=== PATIENT | male | born 1965 | race Caucasian/White ===

== ENCOUNTER 2017-12-29 10:06 | Emergency (ER) | payer OTHER ==
[2017-12-29 10:16] VITALS: TEMP 98
--- NOTE | 2017-12-29 11:24 | EDPHY ---
H & P Time Seen by Provider: 12/29/17 10:10 HPI/ROS: 52-year-old male presents complaining of right arm pain primarily in his right forearm after lifting a box at work. Patient states he felt a pop in his right elbow and forearm. Review of systems As per HPI General no fever no chills no weakness HEENT no eye pain no eye discharge. No eye redness, no sore throat Respiratory no cough, no shortness of breath Cardiac no chest pain, no peripheral edema GI no abdominal pain, no diarrhea, no constipation, no nausea, no vomiting no flank pain, no hematuria, no dysuria Musculoskeletal positive myalgias, no joint pain Heme no easy bruising, no easy bleeding Endo no polyuria, no polydipsia Skin no rashes, no pruritus Neuro no syncope, no dizziness, no headaches Psych is no suicidal ideation, no homicidal ideation Past Medical/Surgical History: GERD Hyperlipidemia Social History: Denies alcohol or drug use Smoking Status: Never smoked Physical Exam: 52-year-old male alert and oriented in no acute distress nontoxic appearance afebrile Atraumatic normocephalic No respiratory distress Lungs clear to auscultation Right upper extremity No gross deformity, good pulses, good range of motion at digits wrist elbow and shoulder Biceps intact Proximal right forearm at radial aspect with mild tenderness to palpation No ecchymosis, no swelling Constitutional: Initial Vital Signs Temperature (C) 36.6 C 12/29/17 10:12 Heart Rate 95 12/29/17 10:12 Respiratory Rate 20 12/29/17 10:12 Blood Pressure 136/111 H 12/29/17 10:12 O2 Sat (%) 98 12/29/17 10:12 O2 Delivery Mode Room Air Allergies/Adverse Reactions: No Known Allergies Allergy (Unverified 09/25/15 16:20) Home Medications: Medication Instructions Recorded Cholecalciferol Vit D3 [Vitamin D3 2,000 units PO DAILY 10/03/15 2000 units] FEXOFENADINE HCL 180 mg PO DAILY 10/03/15 Fluticasone Nasal [Flonase Nasal 2 sprays [place] DAILY 10/03/15 [place]] Herbals/Supplements -Info Only 1 ea PO DAILY 10/03/15 Omeprazole [Prilosec 20 mg] 20 mg PO DAILY 10/03/15 Rosuvastatin Calcium [Crestor 20mg 20 mg PO DAILY 10/03/15 (*)] Nystatin 12/29/17 Medical Decision Making ED Course/Re-evaluation: Patient seen and evaluated for right arm injury after lifting a box at work. Elbow x-ray No fracture no effusion Impression Right forearm strain Plan Obi wrap Rest, ice, elevation Follow-up with primary care physician and possibly Orthopedics if not improving Differential Diagnosis: Differential diagnosis considered but not limited to: Biceps tendon rupture, elbow fracture, elbow strain, right forearm strain Departure - Departure Disposition: Home, Routine, Self-Care Clinical Impression: Strain of right forearm Condition: Good Instructions: Elbow Sprain (ED) Additional Instructions: Rest , ice, elevation If not improving in 2-3 days, follow up with either your primary care or with orthopedics. Referrals: Praneeth Summers MD [Primary Care Provider] - As per Instructions Murray Ramirez MD [Medical Doctor] - As per Instructions
[2017-12-29 11:36] VITALS: BP 167/90; PULSE 86; RESP 18; O2SAT 97
== END 2017-12-29 11:34 | disposition home or self-care (01) ==
LOC: CED 10:06
DX: S56.911A Strain of unspecified muscles, fascia and tendons at forearm level, right arm, initial encounter (principal); X58.XXXA Exposure to other specified factors, initial encounter; Y92.69 Other specified industrial and construction area as the place of occurrence of the external cause; Y99.0 Civilian activity done for income or pay; Y93.89 Activity, other specified
CPT/HCPCS: 73080-PO